=== PATIENT | male | born 1955 | race Native Hawaiian/Other Pacific Islander ===

== ENCOUNTER → 2017-03-16 10:36 | Outpatient (CLI) | payer OTHER | END | disposition home or self-care (01) | LOC: AMB 10:36 | DX: M54.5 Low back pain (principal) ==

== ENCOUNTER 2017-03-16 11:23 | Emergency (ER) | payer OTHER ==
[~2017-03-16] VITALS: Ht 172.7 cm; Wt 102.1 kg
[2017-03-16 11:25] VITALS: TEMP 98.5
[2017-03-16 13:16] VITALS: BP 139/86
== END 2017-03-16 13:16 | disposition home or self-care (01) ==
LOC: ED 11:23
DX: S30.0XXA Contusion of lower back and pelvis, initial encounter (principal); S20.222A Contusion of left back wall of thorax, initial encounter; S20.221A Contusion of right back wall of thorax, initial encounter; S13.9XXA Sprain of joints and ligaments of unspecified parts of neck, initial encounter; S16.1XXA Strain of muscle, fascia and tendon at neck level, initial encounter; V85.0XXA Driver of special construction vehicle injured in traffic accident, initial encounter
CPT/HCPCS: 36415; 96374; 99284; J1885